=== PATIENT | female | born 1930 | race African-American/Black ===

== ENCOUNTER 2016-10-20 09:57 | Emergency (ER) | payer OTHER ==
[~2016-10-20] VITALS: Ht 165.1 cm; Wt 85.7 kg
--- NOTE | ~2016-10-20 | EKG ---
[address] [place] [address] ELECTROCARDIOGRAM REPORT Name: DANIELLE CAMARENA Room #: [facility]#: [id number] Admission: Attend Phys: Discharge: Date of : 28 Report #: [id number] THIS REPORT FOR: //name// 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
[~2016-10-20 09:57] MED LIST: ACETAMINOPHEN325 M1 PO; ASPIRIN81 M2 PO; CARVEDILOL12.5 MG PO; CENTRUM SILVER1 EAC4 PO; CLARITIN10 MG PO; DYMISTA NASAL S23 GM NASAL; ENOXAPARIN40 MG/0.1 SUBQ; HYDROCODON-ACE1 EAC7 PO; IMDUR 30 MG TAB30 M1 PO; IMDUR 60 MG TAB60 M1 PO; IMODIUM A-D; K-DUR 20 MEQ T20 MEQ PO; KEPPRA 500 MG500 M1 PO; LASIX 40 MG TAB40 M1 PO; LISINOPRIL10 MG PO; LISINOPRIL5 MG PO; LOPERAMIDE 2 MG2 M1 PO; LORTAB 5 MG/5001 TAB PO; LOTRISONE CREAM15 GM TP; MAGNESIUM OXID400 MG PO; MAGNESIUM PO; METHOCARBAMOL750 MG PO; MOBIC15 MG PO; MOBIC7.5 M1 PO; MOBIC7.5 MG PO; MOM; NITROGLYCERIN0.4 MG SUBLING; NITROSTAT0.4 MG SL; NORCO 5-325 TA1 EACH PO; NORVASC10 MG PO; OMEPRAZOLE20 M2 PO; OMEPRAZOLE20 MG PO; PLAVIX 75 MG TA75 M1 PO; PREDNISONE 5 MG5 M1 PO; PRILOSEC20 MG PO; ROBAXIN 750 MG750 M1 PO; ZOCOR40 MG PO
[2016-10-20 10:36] LABS: ABSOLUTE NEUTROPHILS 2.1 thou/uL (1.4-8.2); BASOPHILS 0.7 % (0.0-2.0); HEMATOCRIT 33.7 % (37.0-47.0); HEMOGLOBIN 11.2 gm/dL (12.0-15.0); LYMPHOCYTES 45.4 % (24.0-44.0); MCH 31.2 pg (26.0-34.0); MCHC 33.1 g/dL (28.0-37.0); PLATELET COUNT 159 thou/uL (150-400); POLYS 37.9 % (36.0-66.0); RBC 3.59 mil/uL (4.20-5.00); RDW 14.6 % (10.5-14.5); WBC 5.6 thou/uL (4.0-11.0)
[2016-10-20 10:37] LABS: MANUAL DIFF NO
[2016-10-20 10:45] LABS: ANION GAP 7 mmol/L (7-16); BUN 20 mg/dL (7-18); CALCIUM 9.2 mg/dL (8.5-10.1); CHLORIDE 109 mmol/L (98-107); CO2 29 mmol/L (21-32); CREATININE 1.1 mg/dL (0.6-1.0); GLUCOSE 85 mg/dL (74-106); POTASSIUM 3.5 mmol/L (3.5-5.1); SODIUM 145 mmol/L (136-145)
[2016-10-20 10:48] LABS: INR 1.1; PROTIME 10.9 Seconds (9.3-11.4)
[2016-10-20 10:52] LABS: ALBUMIN 3.5 g/dL (3.4-5.0); ALKALINE PHOSPHATASE 71 U/L (46-116); SGOT 19 U/L (15-37); SGPT 14 U/L (30-65); TOTAL BILIRUBIN 0.5 mg/dL (<0.1-1.0); TROPONIN-I < 0.04 ng/mL (<0.04-0.07)
== END 2016-10-20 13:46 | disposition home or self-care (01) ==
LOC: ER 09:57
PROVIDERS: Physician Assistant
DX: R07.89 Other chest pain (principal); Z86.79 Personal history of other diseases of the circulatory system; I11.0 Hypertensive heart disease with heart failure; I50.30 Unspecified diastolic (congestive) heart failure; E66.01 Morbid (severe) obesity due to excess calories; Z90.49 Acquired absence of other specified parts of digestive tract; Z90.710 Acquired absence of both cervix and uterus; Z98.890 Other specified postprocedural states; Z95.9 Presence of cardiac and vascular implant and graft, unspecified; Z88.5 Allergy status to narcotic agent

== ENCOUNTER 2016-12-31 03:59 | Inpatient (IN) | payer OTHER ==
[~2016-12-31] VITALS: Ht 165.1 cm; Wt 86.0 kg
--- NOTE | ~2016-12-31 | EKG ---
[address] [address] ELECTROCARDIOGRAM REPORT Name: DANIELLE CAMARENA Room #: 210-P [facility] IN M.R.#: [id number] Admission: 12/31/16 Attend Phys: Kendra Mckenna Discharge: Date of : 28 Report #: [id number] THIS REPORT FOR: //name// [facility] ED Test Date: 2016-12-31 Test Time: 04:45:16 Pat Name: DANIELLE CAMARENA Department: Room: 210 Gender: F Powderman: LARISSA : 1930 Requested By: Gaurav Jacobs Order Number: [id number] MD: Abel Lopez Measurements Intervals [place] Rate: 60 P: -68 [place]: 246 QRS: -35 QRSD: 115 T: 12 QT: 432 QTc: 432 Interpretive Statements Atrial-paced complexes Prolonged [place] interval Left ventricular hypertrophy Compared to ECG 10/20/2016 10:01:05 First degree AV block now present Left ventricular hypertrophy now present Ventricular-paced complex(es) or rhythm no longer present Left-axis deviation no longer present Electronically Signed On 12-31-2016 13:18:24 CDT by Abel Lopez [email or web address] <ELECTRONICALLY SIGNED> By: Abel Lopez MD 12/31/16 1318 0445 0445 Abel Lopez MD /EPI
[2016-12-31 03:59] VITALS: BP 181/91
[2016-12-31] MEDS ORDERED: VOLTAREN GEL 1100 G2 TOP (04:07)
[2016-12-31] MEDS ORDERED: CALCIUM 600 +1 EAC1 PO (04:08)
[2016-12-31] MEDS ORDERED: NAPROSYN500 MG PO (04:09)
[2016-12-31 06:21] LABS: HEMATOCRIT 32.3 % (37.0-47.0); HEMOGLOBIN 10.6 gm/dL (12.0-15.0); MCH 31.5 pg (26.0-34.0); MCHC 32.9 g/dL (28.0-37.0); MCV 95.7 fL (80.0-100.0); PLATELET COUNT 154 thou/uL (150-400); RBC 3.38 mil/uL (4.20-5.00); RDW 14.7 % (10.5-14.5); WBC 5.9 thou/uL (4.0-11.0)
[2016-12-31 06:22] LABS: MANUAL DIFF YES
[2016-12-31 06:31] LABS: ANION GAP 8 mmol/L (7-16); BUN 21 mg/dL (7-18); CALCIUM 8.5 mg/dL (8.5-10.1); CHLORIDE 109 mmol/L (98-107); CO2 28 mmol/L (21-32); CREATININE 1.1 mg/dL (0.6-1.0); GLUCOSE 107 mg/dL (74-106); POTASSIUM 3.7 mmol/L (3.5-5.1); SODIUM 145 mmol/L (136-145)
[2016-12-31 06:33] LABS: APTT 26.9 Seconds (24.5-32.8); PROTIME 10.7 Seconds (9.3-11.4)
[2016-12-31 06:47] LABS: ALBUMIN 3.2 g/dL (3.4-5.0); ALKALINE PHOSPHATASE 107 U/L (46-116); CK-MB MASS 1.1 ng/mL (<0.5-3.6); MAGNESIUM 1.9 mg/dL (1.8-2.4); NT-PRO BRAIN NAT PEPTIDE 435 pg/mL (<300); SGOT 16 U/L (15-37); SGPT 14 U/L (30-65); TOTAL BILIRUBIN 0.4 mg/dL (<0.1-1.0); TOTAL PROTEIN 6.7 g/dL (6.4-8.2); TROPONIN-I < 0.04 ng/mL (<0.04-0.07)
[2016-12-31 07:25] LABS: URINE BILIRUBIN NEGATIVE (Negative); URINE BLOOD NEGATIVE (Negative); URINE COLOR YELLOW; URINE GLUCOSE-RANDOM* NEGATIVE (Negative); URINE KETONES NEGATIVE (Negative); URINE LEUKOCYTES-REFLEX NEGATIVE (Negative); URINE PROTEIN (DIPSTICK) NEGATIVE (Negative); URINE UROBILINOGEN 0.2 E.U./dl (0.2-1.0)
[2016-12-31 08:24] VITALS: BP 162/78
[2016-12-31 08:34] LABS: ABSOLUTE NEUTROPHILS 3.6 thou/uL (1.4-8.2); PLATELET ESTIMATE NORMAL; TOTAL CELL COUNT 100
[2016-12-31 09:45] LABS: TSH 0.647 uIU/mL (0.358-3.740)
[2016-12-31 16:59] VITALS: BP 184/71
[2016-12-31 19:26] VITALS: BP 158/67
[2016-12-31 23:44] VITALS: BP 180/87
[2017-01-01] VITALS (7 sets, daily range): BP systolic 147–179; BP diastolic 64–81
[2017-01-01 03:41] LABS: % SATURATION 20 % (20-39); IRON 48 ug/dL (50-170); TIBC 237 ug/dL (250-450); UIBC 189 ug/dL
[2017-01-01 03:46] LABS: ALBUMIN 2.9 g/dL (3.4-5.0); ALKALINE PHOSPHATASE 70 U/L (46-116); ANION GAP 9 mmol/L (7-16); BUN 17 mg/dL (7-18); CALCIUM 8.3 mg/dL (8.5-10.1); CHLORIDE 109 mmol/L (98-107); CHOLESTEROL 126 mg/dL (<200); CO2 27 mmol/L (21-32); GLUCOSE 100 mg/dL (74-106); HDL CHOLESTEROL 63 mg/dL (>40); LDL CHOLESTEROL 51 mg/dL (<100); MAGNESIUM 1.8 mg/dL (1.8-2.4); POTASSIUM 3.7 mmol/L (3.5-5.1); SGOT 15 U/L (15-37); SGPT 13 U/L (30-65); SODIUM 145 mmol/L (136-145); TOTAL BILIRUBIN 0.5 mg/dL (<0.1-1.0); TOTAL PROTEIN 6.3 g/dL (6.4-8.2); TRIGLYCERIDE 64 mg/dL (<150); VLDL 13 mg/dL (<40)
[2017-01-01 03:48] LABS: SERUM ASSESSMENT Clear
[2017-01-01 05:10] LABS: GLYCOHEMOGLOBIN (HGB A1C) 5.6 % (4.8-5.6)
[2017-01-02 03:32] VITALS: BP 168/77; BP 768/77
[2017-01-02 08:00] VITALS: BP 197/98
[2017-01-02] MEDS ORDERED: IMDUR 30 MG TAB30 M1 PO (11:51)
[2017-01-02] MEDS ORDERED: ALTACE10 MG PO (11:51)
[2017-01-02 12:00] VITALS: BP 177/94
[2017-01-02 12:24] VITALS: BP 179/77
== END 2017-01-02 16:49 | disposition home or self-care (01) | DRG 206 ==
LOC: ER 03:59 → 2N 07:39 → EROBS 07:39 → 2N 08:25
PROVIDERS: Emergency Medicine; Internal Medicine Cardiovascular Disease; Nurse Practitioner
DX: M94.0 Chondrocostal junction syndrome [Tietze] (principal); N17.9 Acute kidney failure, unspecified; I50.30 Unspecified diastolic (congestive) heart failure; I69.354 Hemiplegia and hemiparesis following cerebral infarction affecting left non-dominant side; I49.5 Sick sinus syndrome; Z96.89 Presence of other specified functional implants; I11.0 Hypertensive heart disease with heart failure; Z96.611 Presence of right artificial shoulder joint; Z66 Do not resuscitate; I73.9 Peripheral vascular disease, unspecified; I25.10 Atherosclerotic heart disease of native coronary artery without angina pectoris; G40.909 Epilepsy, unspecified, not intractable, without status epilepticus; E78.5 Hyperlipidemia, unspecified; D63.8 Anemia in other chronic diseases classified elsewhere; Z79.82 Long term (current) use of aspirin; Z79.899 Other long term (current) drug therapy; Z88.6 Allergy status to analgesic agent; Z98.61 Coronary angioplasty status; Z90.49 Acquired absence of other specified parts of digestive tract; Z90.710 Acquired absence of both cervix and uterus; Z87.11 Personal history of peptic ulcer disease
CPT/HCPCS: 10081

== ENCOUNTER 2017-04-05 10:19 | Inpatient (IN) | payer OTHER ==
[~2017-04-05] VITALS: Ht 160 cm; Wt 85.9 kg
--- NOTE | ~2017-04-05 | EKG ---
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: [id number] : 1930 Requested By: Roddy Lerner Order Number: [id number] MD: Catracho Montero Measurements Intervals [place] Rate: 60 P: MD: 62 QRS: -32 QRSD: 120 T: 3 QT: 433 QTc: 433 Interpretive Statements Sinus rhythm with Atrial-paced complexes Left ventricular hypertrophy Compared to ECG 01/25/2017 17:16:01 No significant change was found Electronically Signed On 04-05-2017 12:38:01 CDT by Catracho Monetro [email or web address] <ELECTRONICALLY SIGNED> By: Catracho Montero MD, [facility] 04/05/17 1238 1041 104 Catracho Montero MD, FACC /EPI
[2017-04-05 10:19] VITALS: BP 196/79
[~2017-04-05 10:19] MED LIST changes: +ALTACE10 MG PO; +CALCIUM 600 +1 EAC1 PO; +NAPROSYN500 MG PO; +VOLTAREN GEL 1100 G2 TOP
[2017-04-05 11:17] LABS: BASOPHILS 0.5 % (0.0-2.0); HEMATOCRIT 33.8 % (37.0-47.0); HEMOGLOBIN 11.5 gm/dL (12.0-15.0); LYMPHOCYTES 35.9 % (24.0-44.0); MCH 32.3 pg (26.0-34.0); MCV 94.9 fL (80.0-100.0); MONOCYTES 10.4 % (1.0-8.0); PLATELET COUNT 120 thou/uL (150-400); POLYS 50.2 % (36.0-66.0); RBC 3.56 mil/uL (4.20-5.00); RDW 14.3 % (10.5-14.5)
[2017-04-05 11:18] LABS: MANUAL DIFF NO
[2017-04-05 11:24] LABS: ANION GAP 5 mmol/L (7-16); BUN 16 mg/dL (7-18); CALCIUM 9.2 mg/dL (8.5-10.1); CHLORIDE 109 mmol/L (98-107); CO2 29 mmol/L (21-32); GLUCOSE 92 mg/dL (74-106); POTASSIUM 3.5 mmol/L (3.5-5.1); SODIUM 143 mmol/L (136-145)
[2017-04-05 11:33] LABS: TROPONIN-I < 0.04 ng/mL (<0.04-0.07)
[2017-04-05 14:49] VITALS: BP 172/90
[2017-04-05 15:08] VITALS: BP 150/87
[2017-04-05 15:45] VITALS: BP 136/72
[2017-04-05 16:00] VITALS: BP 136/72
[2017-04-05 19:33] VITALS: BP 118/52
[2017-04-06 01:54] LABS: HEMOGLOBIN 10.2 gm/dL (12.0-15.0); MCH 32.5 pg (26.0-34.0); MCV 95.7 fL (80.0-100.0); RBC 3.13 mil/uL (4.20-5.00); RDW 14.3 % (10.5-14.5); WBC 5.5 thou/uL (4.0-11.0)
[2017-04-06 02:16] LABS: CALCIUM 8.5 mg/dL (8.5-10.1); CREATININE 0.9 mg/dL (0.6-1.0); POTASSIUM 3.4 mmol/L (3.5-5.1)
[2017-04-06 03:38] VITALS: BP 158/61
[2017-04-06 08:00] VITALS: BP 167/92
[2017-04-06 16:00] VITALS: BP 125/51
[2017-04-06 19:32] VITALS: BP 143/63
[2017-04-07 08:00] VITALS: BP 141/65
[2017-04-07 15:00] VITALS: BP 137/57
[2017-04-07 20:01] VITALS: BP 138/62
[2017-04-08 04:08] VITALS: BP 167/66
[2017-04-08 08:56] VITALS: BP 149/56
== END 2017-04-08 14:53 | DRG 303 ==
LOC: ER 10:19 → EROBS 14:39 → 4N 14:39
PROVIDERS: Emergency Medicine; Hospitalist
DX: I25.10 Atherosclerotic heart disease of native coronary artery without angina pectoris (principal); I50.32 Chronic diastolic (congestive) heart failure; I69.954 Hemiplegia and hemiparesis following unspecified cerebrovascular disease affecting left non-dominant side; I10 Essential (primary) hypertension; I49.5 Sick sinus syndrome; Z96.611 Presence of right artificial shoulder joint; E78.5 Hyperlipidemia, unspecified; G40.909 Epilepsy, unspecified, not intractable, without status epilepticus; Z88.6 Allergy status to analgesic agent; Z79.82 Long term (current) use of aspirin; Z28.21 Immunization not carried out because of patient refusal; Z90.49 Acquired absence of other specified parts of digestive tract; Z90.710 Acquired absence of both cervix and uterus; Z87.11 Personal history of peptic ulcer disease; Z95.5 Presence of coronary angioplasty implant and graft; Z79.899 Other long term (current) drug therapy
CPT/HCPCS: 10091

== ENCOUNTER 2017-11-30 11:17 | Inpatient (IN) | payer OTHER ==
[~2017-11-30] VITALS: Ht 152.4 cm; Wt 80.3 kg
--- NOTE | ~2017-11-30 | HC ---
[facility] [place] [address] CONSULTATION Name: DANIELLE CAMARENA Room #: 353-P [facility] IN ..#: [id number] Admission: 11/30/17 Attend Phys: Campos Petersen MD Discharge: Date of : 28 Report #: [id number] THIS REPORT FOR: //name// CC: FAM unknown Campos Petersen DATE OF SERVICE: 11/30/2017 REASON FOR CONSULTATION: Chest pain. HISTORY OF PRESENT ILLNESS: The patient is an 87-year-old with a history of sick sinus syndrome, status post [employer]tr[employer] pacemaker implantation. Also, with history of coronary artery disease as well as hypertension who presents with an episode of chest pain. She took some nitroglycerin for this and that seemed to alleviate some of the symptoms. She is a really difficult historian, hard to get a really good sense of what is going on. She denies any shortness of breath. She denies any palpitations. She denies presyncope or syncope. REVIEW OF SYSTEMS: GENERAL: No fevers or chills. HEENT: No blurred vision. CARDIOVASCULAR: As above. PULMONARY: No productive cough. GASTROINTESTINAL: No nausea or vomiting. She has had some loose stools for several weeks. GENITOURINARY: No dysuria. MUSCULOSKELETAL: No myalgias or arthralgias. Does have some left shoulder discomfort from her old fall. PAST MEDICAL HISTORY: As above. SOCIAL HISTORY: Does not smoke. FAMILY HISTORY: Noncontributory. ALLERGIES: INCLUDE OXYCODONE. HOME MEDICATIONS: Include Coreg 12.5 b.i.d., potassium, multivitamin, Plavix, nitroglycerin, aspirin, Keppra, omeprazole and prednisone. PHYSICAL EXAMINATION: VITAL SIGNS: Temperature is 36.8, pulse 66, respirations 18, blood pressure 175/73, sats 100%. GENERAL: She is in no acute distress. HEENT: Oropharynx is clear. NECK: Supple, no thyromegaly. [facility] [address] [place] [address] CONSULTATION Name: DANIELLE CAMARENA Room #: 353-P [facility] IN [facility].#: [id number] Admission: 11/30/17 Attend Phys: Campos Petersen MD Discharge: Date of : 28 Report #: [id number] HEART: Regular rate and rhythm. No murmurs, rubs, gallops. LUNGS: Clear to auscultation bilaterally. ABDOMEN: Soft, nontender, nondistended, no hepatosplenomegaly. EXTREMITIES: There is no clubbing, cyanosis or edema. LABORATORY DATA: A 12-lead EKG shows atrial paced rhythm with an incomplete left bundle-branch block and no ischemic changes. A telemetry strip from the ambulance showed intermittent ventricular pacing, but no arrhythmia. LABORATORY DATA: White count 5.3, hemoglobin 9.3, platelets 126. Sodium was 146, potassium 3.6, chloride 109, bicarbonate 27, BUN 25, creatinine 1.2. Troponin is negative x 1. ProBNP is 736. Chest x-ray shows no acute process. ASSESSMENT AND PLAN: 1. Chest pain. 2. Coronary artery disease. 3. Poorly controlled hypertension. 4. Sick sinus syndrome, status post pacemaker implantation. SUMMARY: The patient is an 87-year-old presenting with chest pain. Troponin is normal and her EKG shows no ischemia. Her chest pain may be related to her poorly controlled blood pressure. We will up titrate her blood pressure medications. We can check an echocardiogram. We will continue to follow. <ELECTRONICALLY SIGNED> By: Abel Lopez MD 12/02/17 1516 1833 0006 Abel Lopez MD /nt
--- NOTE | ~2017-11-30 | EKG ---
[address] [address] ELECTROCARDIOGRAM REPORT Name: DANIELLE CAMARENA Room #: 353-P [facility] IN M.R.#: [id number] Admission: 11/30/17 Attend Phys: Campos Petersen MD Discharge: Date of : 28 Report #: [id number] THIS REPORT FOR: //name// [facility] Test Date: 2017-12-02 Test Time: 14:26:57 Pat Name: DANIELLE CAMARENA Department: Room: 353 Gender: F Rn Ostomy: Marshall MARCOS : 1930 Requested By: Campos Petersen Order Number: [id number] MD: Abel Lopez Measurements Intervals [place] Rate: 66 P: -70 [place]: 251 QRS: -51 QRSD: 120 T: -24 QT: 427 QTc: 448 Interpretive Statements Atrial paced rhythm Electronically Signed On 12-02-2017 15:19:36 CDT by Abel Lopez [email or web address] <ELECTRONICALLY SIGNED> By: Abel Lopez MD 12/02/17 1519 1426 1426 MD CATARINO Jefferson
--- NOTE | ~2017-11-30 | 2DMMODE ---
[facility] [address] [place] [address] 2 D/M-MODE ECHOCARDIOGRAM Name: DANIELLE CAMARENA Room #: 353-P [facility] IN ..#: [id number] Admission: 11/30/17 Attend Phys: Campos Petersen MD Discharge: Date of : 28 Date of Service: 12/02/17 1211 Report #: [id number] THIS REPORT FOR: //name// APPROVED REPORT Study performed: 12/02/2017 11:31:54 EXAM: Comprehensive 2D, Doppler, and color-flow Echocardiogram Patient Location: Echo lab Room #: 353 Status: routine BSA: 1.77 HR: 60 bpm BP: 166/92 mmHg Rhythm: Pacemaker Other Information Study Quality: Adequate Indications Chest pain. Hx: PPM, cad, stent, HTN, CVA. 2D Dimensions RVDd: 37.04 mm LVEF(%): 59.30 (>50%) IVSd: 12.90 (7-11mm) LVOT Diam: 21.04 (18-24mm) LVDd: 38.70 mm PWd: 13.37 (7-11mm) Ascending Ao: 30.67 (22-36mm) LVDs: 26.72 (25-40mm) Aortic Root: 32.85 mm Love's LVEF: 59.30 % Volumes Left Atrial Volume (Systole) Single Plane 4CH: 57.48 mL Single Plane 2CH: 54.75 mL LA ESV Index: 34.00 mL/m2 Aortic Valve AoV Peak Fernando.: 1.29 m/s AO Peak Gr.: 6.68 mmHg LVOT Max P.33 mmHg LVOT Max V: 1.04 m/s JESSICA Vmax: 2.80 cm2 Mitral Valve E/A Ratio: 0.7 MV Decel. Time: 267.66 ms [facility] [place] [address] 2 D/M-MODE ECHOCARDIOGRAM Name: DANIELLE CAMARENA Room #: 353-P [facility] IN ..#: [id number] Admission: 11/30/17 Attend Phys: Campos Petersen MD Discharge: Date of : 28 Date of Service: 12/02/17 1211 Report #: [id number] MV E Max Fernando.: 0.68 m/s MV A Fernando.: 0.97 m/s MV PHT: 77.62 ms IVRT: 96.89 ms Pulmonary Valve PV Peak Fernando.: 1.10 m/s PV Peak Gr.: 4.84 mmHg Pulmonary Vein P Vein S: 0.69 m/s P Vein D: 0.32 m/s P Vein S/D Ratio: 2.16 Tricuspid Valve TR Peak Fernando.: 2.48 m/s RAP Estimate: 5.00 mmHg TR Peak Gr.: 24.61 mmHg PA Pressure: 30.00 mmHg Left Ventricle The left ventricle is normal size. Paradoxical septal motion consistent with paced rhythm. Moderate left ventricular hypertrophy. Left ventricular systolic function is normal. LVEF is 55-60%. Mild diastolic dysfunction is present (impaired relaxation pattern). Right Ventricle The right ventricle is normal size. The right ventricular systolic function is normal. Pacemaker lead is present in the right ventricle. Atria Left atrium is mildly dilated. The right atrium size is normal. Aortic Valve Aortic valve leaflets are mildly thickened. No aortic regurgitation is present. There is no aortic valvular stenosis. Mitral Valve Mitral valve leaflets are mildly thickened. Trace mitral regurgitation. Tricuspid Valve The tricuspid valve is normal in structure. Moderate tricuspid regurgitation. Estimated PAP [id number]. Pulmonic Valve [place] [id number] 2 D/M-MODE ECHOCARDIOGRAM Name: DANIELLE CAMARENA [place] Room #: 353-P [facility] IN [facility]#: [id number] Admission: 11/30/17 Attend Phys: Campos Petersen MD Discharge: Date of : 28 Date of Service: 12/02/17 1211 Report #: [id number] The pulmonary valve is normal in structure. Trace to mild pulmonic regurgitation. Great Vessels The aortic root is normal in size. The ascending aorta is normal in size. IVC is normal in size and collapses >50% with inspiration. Pericardium Small pericardial fluid noted by right ventricle. <Conclusion> The left ventricle is normal size. Moderate left ventricular hypertrophy. Left ventricular systolic function is normal. Mild diastolic dysfunction is present (impaired relaxation pattern). The right ventricle is normal size. Left atrium is mildly dilated. Pacemaker lead is present in the right ventricle. Aortic valve leaflets are mildly thickened. Trace mitral regurgitation. Moderate tricuspid regurgitation. Estimated PAP [id number]. <ELECTRONICALLY SIGNED> By: Nikko Ngo MD 12/02/171210 10 10 Nikko Ngo MD /INF
--- NOTE | ~2017-11-30 | EKG ---
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: Brian ACOSTA : 1930 Requested By: Bindu Arroyo Order Number: [id number] MD: Abel Lopez Measurements Intervals [place] Rate: 64 P: [place]: 265 QRS: -51 QRSD: 130 T: 44 QT: 404 QTc: 417 Interpretive Statements Atrial-paced rhythm Nonspecific IVCD with LAD Left ventricular hypertrophy Compared to ECG 04/05/2017 10:41:47 Intraventricular conduction delay now present Sinus rhythm no longer present Electronically Signed On 11-30-2017 12:25:54 CDT by Abel Lopez [email or web address] <ELECTRONICALLY SIGNED> By: Abel Lopez MD 11/30/17 1225 1136 1136 Abel Lopez MD /MICHAEL
[2017-11-30 13:47] LABS: BASOPHILS 0.5 % (0.0-2.0); EOSINOPHILS 4.4 % (0.0-3.0); HEMOGLOBIN 9.3 gm/dL (12.0-15.0); MCH 31.8 pg (26.0-34.0); MCHC 33.4 g/dL (28.0-37.0); MCV 95.4 fL (80.0-100.0); MONOCYTES 11.4 % (1.0-8.0); PLATELET COUNT 126 thou/uL (150-400); POLYS 37.7 % (36.0-66.0); RBC 2.94 mil/uL (4.20-5.00); RDW 14.3 % (10.5-14.5); WBC 5.3 thou/uL (4.0-11.0)
[2017-11-30 13:56] LABS: ANION GAP 10 mmol/L (7-16); BUN 25 mg/dL (7-18); CALCIUM 8.9 mg/dL (8.5-10.1); CHLORIDE 109 mmol/L (98-107); CO2 27 mmol/L (21-32); CREATININE 1.2 mg/dL (0.6-1.0); GLUCOSE 85 mg/dL (74-106); POTASSIUM 3.6 mmol/L (3.5-5.1); SODIUM 146 mmol/L (136-145)
[2017-11-30 14:04] LABS: MAGNESIUM 2.2 mg/dL (1.8-2.4); TROPONIN-I < 0.04 ng/mL (<0.06)
[2017-11-30 16:46] VITALS: BP 175/73
[2017-11-30] MEDS ORDERED: HYDROCODONE-AP1 EAC6 PO ×2 (19:51→19:54)
[2017-11-30 20:00] VITALS: BP 127/90
[2017-11-30 22:26] VITALS: BP 102/48; BP 121/63
[2017-12-01] VITALS (8 sets, daily range): BP systolic 118–156; BP diastolic 62–90
[2017-12-01 04:38] LABS: ANION GAP 8 mmol/L (7-16); BUN 21 mg/dL (7-18); CALCIUM 8.5 mg/dL (8.5-10.1); CHLORIDE 110 mmol/L (98-107); CO2 27 mmol/L (21-32); CREATININE 1.1 mg/dL (0.6-1.0); GLUCOSE 89 mg/dL (74-106); POTASSIUM 3.4 mmol/L (3.5-5.1); SODIUM 145 mmol/L (136-145); TROPONIN-I < 0.04 ng/mL (<0.06)
[2017-12-01 04:42] LABS: HEMATOCRIT 27.8 % (37.0-47.0); HEMOGLOBIN 9.1 gm/dL (12.0-15.0); MCH 31.5 pg (26.0-34.0); MCHC 32.9 g/dL (28.0-37.0); RBC 2.9 mil/uL (4.20-5.00); RDW 14.2 % (10.5-14.5); WBC 5.6 thou/uL (4.0-11.0)
[2017-12-02 03:37] VITALS: BP 153/95
[2017-12-02 08:01] VITALS: BP 166/92
[2017-12-02 12:56] VITALS: BP 122/62
[2017-12-02] MEDS ORDERED: CARVEDILOL25 MG PO (14:01)
[2017-12-02] MEDS ORDERED: NORVASC5 MG PO (14:02)
[2017-12-02 15:23] VITALS: BP 122/62
[2017-12-02 15:40] VITALS: BP 122/62
== END 2017-12-02 15:00 | disposition home or self-care (01) | DRG 292 ==
LOC: ER 11:17 → EROBS 15:34 → 3W 15:34 → ENTRNSPT 12-02 16:01
PROVIDERS: Emergency Medicine; Hospitalist
DX: I11.0 Hypertensive heart disease with heart failure (principal); I69.354 Hemiplegia and hemiparesis following cerebral infarction affecting left non-dominant side; I50.32 Chronic diastolic (congestive) heart failure; Z96.611 Presence of right artificial shoulder joint; I25.10 Atherosclerotic heart disease of native coronary artery without angina pectoris; G40.909 Epilepsy, unspecified, not intractable, without status epilepticus; E66.9 Obesity, unspecified; I36.1 Nonrheumatic tricuspid (valve) insufficiency; E78.5 Hyperlipidemia, unspecified; Z95.0 Presence of cardiac pacemaker; Z68.34 Body mass index [BMI] 34.0-34.9, adult; Z90.49 Acquired absence of other specified parts of digestive tract; Z87.11 Personal history of peptic ulcer disease; Z90.710 Acquired absence of both cervix and uterus; Z95.5 Presence of coronary angioplasty implant and graft; Z79.899 Other long term (current) drug therapy; Z79.82 Long term (current) use of aspirin; Z88.8 Allergy status to other drugs, medicaments and biological substances; Z79.02 Long term (current) use of antithrombotics/antiplatelets
CPT/HCPCS: 10879